=== PATIENT | male | born 1985 | race Caucasian/White ===

== ENCOUNTER 2018-04-10 21:06 | Emergency (ER) | payer OTHER ==
--- NOTE | 2018-04-11 00:22 | ED HEAD/FACIAL INJ COMPLAINT ---
History of Present Illness General Chief Complaint: Animal/Insect Bite Stated Complaint: DOG BITE TO FACE Source: patient Exam Limitations: no limitations Allergies Uncoded Allergies: EYE DROP (HIVES 04/10/18) Reconcile Medications Amoxicillin/Potassium Clav (Augmentin 875-125 Tablet) 875 MG-125 MG TABLET 1 TAB PO BID lip laceration Amoxicillin/Potassium Clav (Augmentin 875-125 Tablet) 875 MG-125 MG TABLET 1 TAB PO BID dog bite Oxycodone HCl/Acetaminophen (Percocet 5-325 MG Tablet) 5 MG-325 MG TABLET 1-2 TAB PO BID pain Triage Note: PT BIT IN FACE BY OWN DOG THAT IS UTD ON SHOTS 'PT UTD WITH TETANUS SUSTAINED LAC TO UPPER LIP THROUGH AND THROUGH Triage Nurses Notes Reviewed? yes Onset: Abrupt Severity: moderate, severe Loss of Consciousness: no loss of consciousness HPI: 32-year-old male comes into the emergency room for further evaluation of laceration to right upper lip. Patient reports that he was laying on his dog and the dog has arthritis in the dog else and turned and snapped at his face and caught his lip. The dog is up-to-date on its rabies vaccines. He is unsure in his tetanus shot. Large laceration to right upper lip. Comes in for further evaluation. (Kurt Escamilla) Vital Signs & Intake/Output Vital Signs & Intake/Output Vital Signs Date Time Temp Pulse Resp B/P B/P Pulse O2 O2 Flow FiO2 Mean Ox Delivery Rate 04/11 0151 98.0 80 20 136/68 99 Room Air 04/10 2141 97.7 71 20 142/75 98 (Venecia DUGGAN,Philippe Granda) Past History Travel History Traveled to [place] past 21 day No Medical History Any Pertinent Medical History? see below for history Neurological: NONE EENT: NONE Cardiovascular: NONE Respiratory: NONE Gastrointestinal: NONE Hepatic: NONE Renal: NONE Musculoskeletal: NONE Psychiatric: NONE Endocrine: NONE Blood Disorders: NONE Cancer(s): NONE RADIOLOGIST/Reproductive: NONE Surgical History Surgical History: non-contributory Psychosocial History What is your primary language Japanese Tobacco Use: Never used ETOH Use: denies use Illicit Drug Use: denies illicit drug use Family History Hx Contributory? No (Kurt Escamilla) Review of Systems Review of Systems Constitutional: Reports: no symptoms. EENTM: Reports: no symptoms. Respiratory: Reports: no symptoms. Cardiovascular: Reports: no symptoms. GI: Reports: no symptoms. Genitourinary: Reports: no symptoms. Musculoskeletal: Reports: see HPI. Skin: Reports: see HPI. Neurological/Psychological: Reports: no symptoms. Hematologic/Endocrine: Reports: no symptoms. Immunologic/Allergic: Reports: no symptoms. All Other Systems: Reviewed and Negative (Kurt Escamilla) Physical Exam Physical Exam General Appearance: well developed/nourished, mild distress Head: complex laceration to right upper lip, patient has a laceration that goes through the entire lip on the right upper aspect, approximately one and a half inches, affects the vermilion border, Eyes: Bilateral: normal appearance. Ears, Nose, Throat: normal ENT inspection, hearing grossly normal Neck: normal inspection Respiratory: no respiratory distress Back: normal inspection Extremities: normal inspection, normal range of motion, no edema Psychiatric: awake, alert, oriented x 3 Cranial Nerves: normal hearing, normal speech, PERRL Coordination/Gait: normal gait Motor/Sensory: no motor/sensory deficits Skin: intact, normal color, warm/dry Diagram Head: 1) (Kurt Escamilla) Progress Differential Diagnosis: facial fracture, LACERATION,, SOFT TISSUE FB Plan of Care: Current Medications Sig/Eliot Start time Last Medication Dose Stop Time Status Admin Amoxicillin/ 1,000 MG ONCE ONE 04/11 130 UNVr Clavulanate Potassium 04/11 131 (Augmentin) Tetanus/Diphtheria 0.5 ML ONCE ONE 04/11 130 UNVr Toxoids Adsorbed 04/11 131 (Decavac) (Kurt Escamilla) Departure Departure Disposition: HOME OR SELF CARE Condition: Stable Clinical Impression Primary Impression: Lip laceration Secondary Impressions: Dog bite Referrals: Rafael Aguayo MD Patient Has No Primary Care Dr (PCP/Family) Additional Instructions: Take Augmentin as prescribed. Follow-up with plastic surgeon. Please go over all results of today's visit with your primary care doctor. Contact your primary care doctor to let them know you were here in the emergency room. There may be nonspecific findings which may not be related to your visit today here in the emergency room but may require further evaluation and chronic monitoring by your primary care doctor. If you had a laceration today the chance of foreign body always remains. You should follow-up with your primary care doctor for recheck in 3-5 days for a wound check. If you had an x-ray done there is a chance that a fracture could have been missed on initial read and you should follow-up with your primary care doctor for repeat x-rays if symptoms persist. If your blood pressure was elevated here in the emergency room please have rechecked by our primary care doctor within the next 48. If you were prescribed a narcotic here in the emergency room or any type of controlled substances you're not allowed to drive while taking this medication or operate any type of heavy machinery. Narcotics can make you feel lightheaded dizziness nausea and can cause constipation. You may need to seed cone picker a stool softener. Thank you for choosing [facility] emergency room. Please return to the emergency room immediately if you have any other concerns worsening of symptoms. Departure Forms: Customer Survey General Discharge Information Prescriptions: Current Visit Scripts Amoxicillin/Potassium Clav (Augmentin 875-125 Tablet) 1 TAB PO BID #20 TAB Amoxicillin/Potassium Clav (Augmentin 875-125 Tablet) 1 TAB PO BID #20 TAB Oxycodone HCl/Acetaminophen (Percocet 5-325 MG Tablet) 1-2 TAB PO BID #10 TAB (Kurt Escamilla) PA/ASSISTANT SOFTBALL COACH Co-Sign Statement Statement: ED Attending supervision documentation- [X] I saw and evaluated the patient. I have also reviewed all the pertinent lab results and diagnostic results. I agree with the findings and the plan of care as documented in the PA's/ASSISTANT SOFTBALL COACH's documentation. [X] I have reviewed the ED Record and agree with the PA's/ASSISTANT SOFTBALL COACH's documentation. [] Additions or exceptions (if any) to the PAs/ASSISTANT SOFTBALL COACH's note and plan are summarized below: [] (Venecia DUGGAN,Philippe Granda)
[2018-04-11] MEDS ORDERED: AUGMENTIN 875-1 EACH PO ×2 (01:18→01:19)
[2018-04-11] MEDS ORDERED: PERCOCET 5-3251 EACH PO ×2 (01:18→01:19)
[2018-04-11 01:51] VITALS: BP 136/68
--- NOTE | 2018-04-11 09:17 | Cons- Plastic Surgery ---
General Information and HPI Consulting Request Date of Consult: 04/11/18 Requested By: ED Reason for Consult: upper lip laceration Source of Information: patient Exam Limitations: no limitations History of Present Illness: 32 yo male sustained laceration to upper lip from dog bite. Patient was at home when the patient was injured by dog. No other associated injuries. Allergies/Medications Allergies: Uncoded Allergies: EYE DROP (HIVES 04/10/18) Home Med List: Amoxicillin/Potassium Clav (Augmentin 875-125 Tablet) 875 MG-125 MG TABLET 1 TAB PO BID lip laceration Amoxicillin/Potassium Clav (Augmentin 875-125 Tablet) 875 MG-125 MG TABLET 1 TAB PO BID dog bite Oxycodone HCl/Acetaminophen (Percocet 5-325 MG Tablet) 5 MG-325 MG TABLET 1-2 TAB PO BID pain Current Medications: Current Medications Sig/Eliot Start time Last Medication Dose Route Stop Time Status Admin Amoxicillin/ 0 .STK-MED ONE 04/11 014 DC Clavulanate Potassium PO Amoxicillin/ 1,000 MG ONCE ONE 04/11 0130 DC 04/11 Clavulanate Potassium PO 04/11 013 0144 Lidocaine/Epinephrine 0 .STK-MED ONE 04/11 0055 DC .ROUTE Tetanus/Diphtheria 0 .STK-MED ONE 04/11 0142 DC Toxoids Adsorbed IM Tetanus/Diphtheria 0.5 ML ONCE ONE 04/11 013 DC 04/11 Toxoids Adsorbed IM 04/11 013 0144 Past History Medical History Blood Transfusion Hx: No Neurological: NONE EENT: NONE Cardiovascular: NONE Respiratory: NONE Gastrointestinal: NONE Hepatic: NONE Renal: NONE Musculoskeletal: NONE Psychiatric: NONE Endocrine: NONE Blood Disorders: NONE Cancer(s): NONE SEISMIC SURVEY ASSISTANT/Reproductive: NONE Surgical History Pertinent Surgical History: non-contributory Psychosocial History ETOH Use: denies use Illicit Drug Use: denies illicit drug use Review of Systems Review of Systems Skin: Reports: see HPI. Exam & Diagnostic Data Vital Signs and I&O Vital Signs Date Time Temp Pulse Resp B/P B/P Pulse O2 O2 Flow FiO2 Mean Ox Delivery Rate 04/11 0151 98.0 80 20 136/68 99 Room Air 04/10 2141 97.7 71 20 142/75 98 Physical Exam General Appearance: alert, awake, comfortable Skin: 3.5 cm vertical upper lip laceration through madeleine border with exposed subcutaneous tissue, orbicularis muscle 0.5cm horizontal laceration, exposed subcutaneous tissue Assessment/Plan Assessment/Plan 32 yo male s/p dog bite with laceration to upper lip and chin -Discussed with patient laceration repair. The procedure, risks, benefits, and alternatives discussed. The risks discussed but not limited to bleeding, infection, pain, scarring, asymmetry, paraesthesia, and further revision. Knowing these risks the patient agreed to the procedure. -PO antibiotics -HOB elevated, no strenuous activities -Bacitracin to wound site twice daily -F/U 3 days Problem List: 1. Lip laceration 2. Dog bite Consult Acknowledgment - Thank you for your consult request. Attending MD Review Statement Attending Statement Attending MD Statement: examined this patient, discuss w/resident/PA/EDUCATION PROFESSIONAL, discussed with family, discussed w/nursing
--- NOTE | 2018-04-11 09:31 | Procedure ---
Minor Surgical Procedure Note Date of Procedure: 04/11/18 Procedure Note: Laceration repair of upper lip and chin after dog bite Verbal consent obtained. Patient informed of the procedure, risks, benefits, and alternatives. Risks discussed included but not limited to bleeding, infection, pain, scarring, asymmetry, and revision. Lip laceration injected with 3 cc 1% lidocaine with epinephrine. Wound sites measured; lip-3 cm, chin-0.5 cm. Wound sites prepped and draped. 5-0 vicryl used to reapproximate orbicularis wilfredo muscle, and dermis. 5-0 chromic used to reapproximated mucosa and skin edges for chin laceration. Wound edges repproximated without tension. Bacitracin applied to wound sites. Patient tolerated the procedure well. Post-procedure instructions verbalized to patient. Head of bed elevated, PO antibiotics, no heavy lifting nor strenuous activities, Bacitracin daily, and soft diet. Observe for increased swelling, ecchymosis, fever, and chills.
== END 2018-04-11 01:51 ==
LOC: ERH 21:06
DX: S01.551A Open bite of lip, initial encounter (principal); W54.0XXA Bitten by dog, initial encounter
CPT/HCPCS: 90471; 90714; J3490